=== PATIENT | male | born 1965 | race American Indian/Alaskan Native ===

== ENCOUNTER 2019-01-08 17:54 | Emergency (ER) | payer OTHER ==
[2019-01-08] MEDS ORDERED: BOOSTRIX IM ONE ×2 (18:05→21:48)
[2019-01-08] MEDS ORDERED: NORCO 7.5/325 PO ONE (18:05)
--- NOTE | 2019-01-08 18:06 | Event Note ---
ED Screening Note Date of service: 01/08/19 Time: 18:02 ED Screening Note: 53 y/o male comes in for laceration to left index finger while using a change saw [employer]. Will need a Tetanus. NKDA. PMH DM on insulin and oral meds. This initial assessment/diagnostic orders/clinical plan/treatment(s) is/are subject to change based on patients health status, clinical progression and re- assessment by fellow clinical providers in the ED. Further treatment and workup at subsequent clinical providers discretion. Patient/guardian urged not to elope from the ED as their condition may be serious if not clinically assessed and managed. Initial orders include:
--- NOTE | 2019-01-08 18:59 | XRay Report ---
Left fingers 3 views INDICATION: Left finger pain following injury IMPRESSION: Prominent laceration of the index finger without underlying foreign body. No displaced fr acture of the distal phalanx appreciated. Signer Name: Jonathon Fischer MD Signed: 01/08/2019 6:54 PM Workstation Name: [id number]
--- NOTE | 2019-01-08 22:06 | Emergency Department Report ---
ED Upper Extremity Inj HPI - General Chief Complaint: Extremity Injury, Upper Stated Complaint: FINGER LAC Time Seen by Provider: 01/08/19 21:12 Source: patient Mode of arrival: Ambulatory Limitations: No Limitations - History of Present Illness Initial Comments: 53 y/o male comes in for laceration to left index finger while using a skill saw. Will need a Tetanus. NKDA. PMH DM on insulin and oral meds. there is no nerve mucle or tendon damage Complaint: Injury to:: left (index finger tip) Onset/Timin -: hour(s) Other Extremity Injury: Fingers: Left (index finger finger tip laceration ) Other Injuries: none Handedness: right Place: home Severity scale (0 -10): 5 Improves With: none Worsens With: none Context: laceration Associated Symptoms: denies other symptoms - Related Data Previous Rx's Medication Instructions Recorded Last Taken Type Clindamycin [Clindamycin CAP] 300 mg PO Q6H 10 Days #40 capsule 01/08/19 Unknown Rx traMADol [Ultram] 50 mg PO Q6HR PRN #12 tablet 01/08/19 Unknown Rx Allergies Allergy/AdvReac Type Severity Reaction Status Date / Time No Known Allergies Allergy Unverified 01/08/19 17:57 ED Review of Systems ROS: Stated complaint: FINGER LAC Other details as noted in HPI Constitutional: denies: chills, fever Eyes: denies: eye pain, eye discharge, vision change ENT: denies: ear pain, throat pain Respiratory: denies: cough, shortness of breath, wheezing Cardiovascular: denies: chest pain, palpitations Endocrine: no symptoms reported Gastrointestinal: denies: abdominal pain, nausea, diarrhea Genitourinary: denies: urgency, dysuria Musculoskeletal: other (left index finger laceration ) Skin: denies: rash, lesions Neurological: denies: headache, weakness, numbness, paresthesias, confusion, vertigo Psychiatric: denies: anxiety, depression Hematological/Lymphatic: denies: easy bleeding, easy bruising ED Past Medical Hx - Past Medical History Previous Medical History?: No - Surgical History Past Surgical History?: No - Social History Smoking Status: Unknown if ever smoked Substance Use Type: None - Medications Home Medications: Home Medications Medication Instructions Recorded Confirmed Last Taken Type Clindamycin [Clindamycin CAP] 300 mg PO Q6H 10 Days #40 capsule 01/08/19 Unknown Rx traMADol [Ultram] 50 mg PO Q6HR PRN #12 tablet 01/08/19 Unknown Rx ED Physical Exam - General Limitations: No Limitations General appearance: alert, in no apparent distress - Head Head exam: Present: atraumatic, normocephalic - Eye Eye exam: Present: normal appearance, PERRL, EOMI Pupils: Present: normal accommodation - ENT ENT exam: Present: mucous membranes moist - Neck Neck exam: Present: normal inspection - Respiratory Respiratory exam: Present: normal lung sounds bilaterally. Absent: respiratory distress - Cardiovascular Cardiovascular Exam: Present: regular rate, normal rhythm. Absent: systolic murmur, diastolic murmur, rubs, gallop - GI/Abdominal GI/Abdominal exam: Present: soft, normal bowel sounds - Rectal Rectal exam: Present: deferred - Extremities Exam Extremities exam: Present: full ROM, tenderness (left index finger tip laceration ), normal capillary refill - Expanded Upper Extremity Exam Left Hand Wrist exam: Present: full ROM, tenderness, laceration (left index fingr tip laceration irreg 1 cm ) Neuro motor exam: Present: wrist extension intact, thumb opposition intact, thumb IP flexion intact, thumb adduction intact, fingers 2-5 abduction intact Neurosensory exam: Present: 2-point discrimination, radial nerve intact, ulnar nerve intact, median nerve intact Vascular: Present: normal capillary refill, radial pulse, brachial pulse, ulnar pulse. Absent: pulse deficit radial art, pulse deficit ulnar art, pulse deficit brachial art - Back Exam Back exam: Present: normal inspection, full ROM. Absent: tenderness, rash noted - Neurological Exam Neurological exam: Present: alert, oriented X3, CN II-XII intact, normal gait, reflexes normal. Absent: motor sensory deficit - Psychiatric Psychiatric exam: Present: normal affect, normal mood - Skin Skin exam: Present: warm, dry, intact, normal color. Absent: rash ED Course Vital Signs 01/08/19 01/08/19 18:14 21:50 Temperature 98.1 F Pulse Rate 94 H Respiratory 20 16 Rate Blood Pressure 149/100 O2 Sat by Pulse 96 Oximetry - Laceration /Wound Repair Left Distal Finger Wound Location: upper extremity Wound Length (cm): 1 Wound's Depth, Shape: irregular Wound Explored: contaminated Irrigated w/ Saline (ccs): 60 Betadine Prep?: Yes Anesthesia: 1% Lidocaine Volume Anesthetic (ccs): 1 (digital block ) Wound Debrided: minimal Wound Repaired With: sutures Suture Size/Type: 4:0, proline (8) Number of Sutures: 8 Layer Closure?: No Progress: wound cleaned with betadine solution anesthesia with 1% lidocain plane x 1 cc via digital block, wound irrigated with 60 sterile saline explored no foreign body, wound closed with 4.0 prolene , x 8 sutures all bleeding is controlled there is no nerve tendon or muscle damage rom intact all bleeding is controlled pt given wound care instructions will follow up with pcp in 2 days for wound check pt tolerated procedure with minimal distress. ED Medical Decision Making - Radiology Data Radiology results: report reviewed, image reviewed Ordering Physician: PRMEA CLARKE Date of Service: 01/08/19 Procedure(s): XR finger(s) 2+V LT Accession Number(s): [id number] cc: PREMA CLARKE Fluoro Time In Minutes: Left fingers 3 views INDICATION: Left finger pain following injury IMPRESSION: Prominent laceration of the index finger without underlying foreign body. No displaced fracture of the distal phalanx appreciated. Signer Name: Jonathon Fischer MD Signed: 01/08/2019 6:54 PM Workstation Name: [id number] Transcribed By: BC Dictated By: Jonathon Fischer MD Electronically Authenticated By: Jonathon Fischer MD Signed Date/Time: 01/08/191853 DD/ 53 TD/TT: - Medical Decision Making xray neg for fracture suture repaired see procedure note , pt cms remains intact pt will be dc'd to home with rx for clindamycin, ultram given wound instructions will follow up with pcp in 2 days for wound check , in 7-10 days for suture removal. pt verbalized agreement and understanding of discharge plan. Critical care attestation.: If time is entered above; I have spent that time in minutes in the direct care of this critically ill patient, excluding procedure time. ED Disposition Clinical Impression: Finger laceration Qualifiers: Encounter type: initial encounter Finger: index finger Damage to nail status: without damage Foreign body presence: without foreign body Laterality: left Qualified Code(s): S61.211A - Laceration without foreign body of left index finger without damage to nail, initial encounter Disposition: DC-01 TO HOME OR SELFCARE Is pt being admited?: No Does the pt Need Aspirin: No Condition: Stable Instructions: Laceration (ED) Prescriptions: Clindamycin [Clindamycin CAP] 300 mg PO Q6H 10 Days #40 capsule traMADol [Ultram] 50 mg PO Q6HR PRN #12 tablet PRN Reason: Pain Referrals: [facility] HAYDEEOL[facility]ST[facility] MD ERIS [Primary Care Provider] - 3-5 Days BHAVESH FLORES MD [Staff Physician] - 2-3 Days Forms: Work/School Release Form(ED) Time of Disposition: 22:21
[2019-01-08 22:35] VITALS: BP 124/88
== END 2019-01-08 22:28 | disposition home or self-care (01) ==
LOC: ED 17:54
DX: S61.211A Laceration without foreign body of left index finger without damage to nail, initial encounter (principal); W27.8XXA Contact with other nonpowered hand tool, initial encounter; Y93.9 Activity, unspecified; Y92.019 Unspecified place in single-family (private) house as the place of occurrence of the external cause; Y99.8 Other external cause status
CPT/HCPCS: 90471; 90715